=== PATIENT | female | born 1945 | race Caucasian/White ===

== ENCOUNTER → 2024-02-09 07:54 | Outpatient (REF) | payer MEDICARE, SELFPAY ==
[2024-02-09 10:15] LABS: ALT (SGPT) 23 U/L (0-35); AST (SGOT) 32 U/L (14-36); Albumin 4.4 g/dl (3.5-5.0); Alkaline Phosphatase 118 U/L (38-126); Blood Urea Nitrogen 17 mg/dl (7-17); Calcium 9.6 mg/dl (8.4-10.2); Carbon Dioxide 21 mmol/L (22-30); Chloride 108 mmol/L (98-107); Glucose 187 mg/dl (70-99); Sodium 139 mmol/L (135-145); Total Bilirubin 0.7 mg/dl (0.2-1.3); Total Protein 7.4 g/dl (6.3-8.2); eGFR > 60.00
[2024-02-09 10:45] LABS: TSH 2.28 uIU/ml (0.47-4.68)
[2024-02-09 12:43] LABS: Glycohemoglobin (HgbA1c) 9.4 % (4.0-5.6)
== END ==
LOC: HWLAB 07:54
PROVIDERS: ATTENDING PHYSICIAN Internal Medicine Rheumatology; FAMILY PHYSICIAN Internal Medicine
DX: M15.9 Polyosteoarthritis, unspecified (principal); M81.0 Age-related osteoporosis without current pathological fracture; E11.65 Type 2 diabetes mellitus with hyperglycemia; F33.1 Major depressive disorder, recurrent, moderate
CPT/HCPCS: 36415; 80053; 83036; 84443

== ENCOUNTER → 2024-09-05 09:28 | Outpatient (REF) | payer MEDICARE, SELFPAY ==
[2024-09-05 12:56] LABS: ALT (SGPT) 20 U/L (0-35); AST (SGOT) 23 U/L (14-36); Albumin 4.4 g/dl (3.5-5.0); Alkaline Phosphatase 136 U/L (38-126); Blood Urea Nitrogen 16 mg/dl (7-17); Calcium 9.8 mg/dl (8.4-10.2); Carbon Dioxide 24 mmol/L (22-30); Chloride 102 mmol/L (98-107); Glucose 295 mg/dl (70-99); HDL Cholesterol 73 mg/dl; LDL Cholesterol, Calculated 85 mg/dl; Potassium 4.3 mmol/L (3.5-5.1); Sodium 141 mmol/L (135-145); Total Bilirubin 0.3 mg/dl (0.2-1.3); Total Cholesterol 194 mg/dl (50-199); Total Protein 7.1 g/dl (6.3-8.2); Triglyceride 182 mg/dl (10-149); Very Low Density Lipoprotein 36 mg/dl (0-30); eGFR > 60.00
[2024-09-05 13:12] LABS: TSH 0.95 uIU/ml (0.47-4.68)
[2024-09-05 13:18] LABS: Microalbumin, Random Urine 13.6 mg/dl (0.6-1.7); Microalbumin/creatinine Ratio 108.9 mg/g
[2024-09-05 13:31] LABS: Vitamin B12 351 pg/ml (239-931)
== END ==
LOC: HWLAB 09:28
PROVIDERS: ATTENDING PHYSICIAN Internal Medicine; REFERRING PHYSICIAN Nurse Practitioner Psychiatric/Mental Health
DX: E11.65 Type 2 diabetes mellitus with hyperglycemia (principal); R41.3 Other amnesia; E78.00 Pure hypercholesterolemia, unspecified; E78.5 Hyperlipidemia, unspecified
CPT/HCPCS: 36415; 80053; 80061; 82043; 82570; 82607; 83036; 84443

== ENCOUNTER → 2024-10-18 12:28 | Outpatient (REF) | payer MEDICARE, SELFPAY ==
[2024-10-18 17:31] LABS: Erythrocyte Sed Rate 26 mm/hour (0-20)
[2024-10-18 17:54] LABS: Folate > 20.0 ng/ml (2.76-20)
== END ==
LOC: HWLAB 12:28
PROVIDERS: ATTENDING PHYSICIAN Psychiatry & Neurology Neurology; FAMILY PHYSICIAN Internal Medicine; REFERRING PHYSICIAN Nurse Practitioner Psychiatric/Mental Health
DX: R41.82 Altered mental status, unspecified (principal)
CPT/HCPCS: 36415; 82746; 85652; 86618

== ENCOUNTER → 2024-10-22 07:18 | Outpatient (REF) | payer MEDICARE, SELFPAY ==
[2024-10-22 13:18] LABS: Vitamin D, 25-OH*** 28.9 ng/mL (30-80)
[2024-10-22 14:23] LABS: ALT (SGPT) 20 U/L (0-35); AST (SGOT) 23 U/L (14-36); Albumin 4.4 g/dl (3.5-5.0); Alkaline Phosphatase 107 U/L (38-126); Blood Urea Nitrogen 22 mg/dl (7-17); Calcium 10.5 mg/dl (8.4-10.2); Carbon Dioxide 24 mmol/L (22-30); Chloride 103 mmol/L (98-107); Glucose 168 mg/dl (70-99); Potassium 4.8 mmol/L (3.5-5.1); Sodium 139 mmol/L (135-145); Total Bilirubin 0.5 mg/dl (0.2-1.3); Total Protein 7.2 g/dl (6.3-8.2); eGFR > 60.00
--- NOTE | 2024-10-22 15:07 | EEGC.RPT ---
Continuous EEG Report
Recording
Done with Video Recording: Yes
Electrocardiogram: Unremarkable
Report
TECHNICAL REMARKS: This is a technically satisfactory eighteen channel record employing 21 disc electrodes applied according to a measured international 10-20 electrode placement system. There were no significant technical difficulties. The study
was done on a [employer] System.
CLINICAL HISTORY: This is a 78-year-old woman with cognitive symptoms. This study was requested to look for epileptiform abnormalities.
MEDICATION: no AED
STUDY DURATION: 35 min, 20 secs
REPORT: At the onset of the EEG, the patient is awake. The background activity consists of 10-11 Hz, persistent, posteriorly dominant, moderate amplitude, symmetric and rhythmic activity that is reactive to eye-opening. Anteriorly, it consists of a
mixture of low voltage indeterminate activity and 20-25 Hz, persistent, low amplitude, symmetric and rhythmic activity. Stepwise intermittent photic stimulation (1-31 Hz) does not induce any abnormalities. Hyperventilation was not performed.
Drowsiness is characterized by low amplitude mixed frequency activity, decreased eye blinking, and muscle artifact.
IMPRESSION: This is a normal awake and drowsy EEG. There is no evidence of focal slowing or epileptiform activity. A normal EEG does not rule out epilepsy. If the clinical picture warrants, a sleep-deprived awake and sleep record may be helpful.
== END ==
LOC: EEG 07:18
PROVIDERS: ATTENDING PHYSICIAN Physician Assistant; FAMILY PHYSICIAN Internal Medicine; REFERRING PHYSICIAN Psychiatry & Neurology Neurology
DX: R41.82 Altered mental status, unspecified (principal); M81.0 Age-related osteoporosis without current pathological fracture; E55.9 Vitamin D deficiency, unspecified
CPT/HCPCS: 36415; 77080; 80053; 82306; 95816

== ENCOUNTER → 2024-11-05 13:35 | Outpatient (REF) | payer MEDICARE, SELFPAY | LOC: PAVMRI 13:35 | PROVIDERS: ATTENDING PHYSICIAN Psychiatry & Neurology Neurology; FAMILY PHYSICIAN Internal Medicine | DX: R41.82 Altered mental status, unspecified (principal) | CPT/HCPCS: 70551 ==

== ENCOUNTER → 2025-01-29 08:44 | Outpatient (REF) | payer MEDICARE, SELFPAY ==
[2025-01-29 12:42] LABS: ALT (SGPT) 21 U/L (0-35); AST (SGOT) 24 U/L (14-36); Albumin 4.4 g/dl (3.5-5.0); Alkaline Phosphatase 122 U/L (38-126); Blood Urea Nitrogen 18 mg/dl (7-17); Calcium 10.8 mg/dl (8.4-10.2); Carbon Dioxide 26 mmol/L (22-30); Chloride 106 mmol/L (98-107); Glucose 175 mg/dl (70-99); HDL Cholesterol 51 mg/dl; LDL Cholesterol, Calculated 109 mg/dl; Potassium 4.3 mmol/L (3.5-5.1); Sodium 140 mmol/L (135-145); Total Bilirubin 0.6 mg/dl (0.2-1.3); Total Cholesterol 207 mg/dl (50-199); Total Protein 7.2 g/dl (6.3-8.2); Triglyceride 238 mg/dl (10-149); Very Low Density Lipoprotein 47 mg/dl (0-30); eGFR > 60.00
[2025-01-29 13:02] LABS: Glycohemoglobin (HgbA1c) 6.7 % (4.0-5.6)
[2025-01-29 13:10] LABS: TSH 1.02 uIU/ml (0.47-4.68)
== END ==
LOC: HWLAB 08:44
PROVIDERS: ATTENDING PHYSICIAN Internal Medicine; OTHER PHYSICIAN Nurse Practitioner Psychiatric/Mental Health; REFERRING PHYSICIAN Psychiatry & Neurology Neurology
DX: E78.00 Pure hypercholesterolemia, unspecified (principal); E11.65 Type 2 diabetes mellitus with hyperglycemia
CPT/HCPCS: 36415; 80053; 80061; 83036; 84443

== ENCOUNTER → 2025-05-29 08:14 | Outpatient (REF) | payer MEDICARE, SELFPAY ==
[2025-05-29 10:57] LABS: ALT (SGPT) 15 U/L (0-35); AST (SGOT) 22 U/L (14-36); Albumin 4.3 g/dl (3.5-5.0); Alkaline Phosphatase 99 U/L (38-126); Blood Urea Nitrogen 15 mg/dl (7-17); Calcium 10.2 mg/dl (8.4-10.2); Carbon Dioxide 26 mmol/L (22-30); Chloride 105 mmol/L (98-107); Glucose 160 mg/dl (70-99); Potassium 4.4 mmol/L (3.5-5.1); Sodium 140 mmol/L (135-145); Total Protein 7.1 g/dl (6.3-8.2); eGFR > 60.00
[2025-05-29 11:09] LABS: Glycohemoglobin (HgbA1c) 6.5 % (4.0-5.6)
[2025-05-29 11:23] LABS: TSH 1.40 uIU/ml (0.47-4.68)
== END ==
LOC: HWLAB 08:14
PROVIDERS: ATTENDING PHYSICIAN Internal Medicine; OTHER PHYSICIAN Nurse Practitioner Psychiatric/Mental Health; REFERRING PHYSICIAN Psychiatry & Neurology Neurology
DX: E11.65 Type 2 diabetes mellitus with hyperglycemia (principal); E78.00 Pure hypercholesterolemia, unspecified
CPT/HCPCS: 80053; 83036; 84443